=== PATIENT | female | born 1950 | race Caucasian/White ===

== ENCOUNTER 2017-12-19 13:16 | Inpatient (IN) | payer MEDICARE, OTHER ==
[2017-12-19] MEDS: HYDROCODONE/APAP (5/325) TAB PO (13:36)
[2017-12-19] MEDS: KETOROLAC 30 MG INJ IM (13:36)
[2017-12-19] MEDS: SOD CHLORIDE 0.9% 1,000 ML IV ×2 (17:37→20:00)
[2017-12-19] MEDS: morphine 2 MG INJ IV ×3 (17:37→22:09)
[2017-12-19 17:38] LABS: ADD MAN DIFF? NO
[2017-12-19 17:43] LABS: WHITE BLOOD COUNT 10.4 10^3/ul (4.8-10.8)
[2017-12-19 17:43] LABS: BASOPHIL # 0.1 10^3/ul (0.0-0.1); BASOPHILS % 0.5 % (0.0-2.0); EOSINOPHILS % 0.3 % (0.0-7.0); HEMATOCRIT 37.3 % (37.0-47.0); HEMOGLOBIN 12.7 g/dl (12.0-16.0); LYMPHOCYTES # 1.4 10^3/ul (0.8-2.9); LYMPHOCYTES % 13.7 % (15.0-51.0); MEAN CORPUSCULAR HEMOGLOBIN 27.7 pg (29.0-33.0); MEAN CORPUSCULAR VOLUME 81.3 fl (82.0-101.0); MEAN PLATELET VOLUME 10.5 fl (7.4-10.4); MONOCYTE # 0.5 10^3/ul (0.3-0.9); MONOCYTES % 4.9 % (0.0-11.0); NEUTROPHIL # 8.3 10^3/ul (1.6-7.5); NEUTROPHILS % 80.1 % (39.0-77.0); PLATELET COUNT 248 10^3/UL (140-415); RED BLOOD COUNT 4.59 10^6/ul (4.20-5.40); RED CELL DISTRIBUTION WIDTH 12.2 % (11.5-14.5)
[2017-12-19 17:59] LABS: INR 0.93; PROTIME 12.6 Sec (11.9-14.9)
[2017-12-19 18:00] LABS: PARTIAL THROMBOPLASTIN TIME 23.9 Sec (25.0-35.0)
[2017-12-19 18:10] LABS: ANION GAP 15 (8-16); BLOOD UREA NITROGEN 9 mg/dl (7-20); CALCIUM 9.2 mg/dl (8.4-10.2); CARBON DIOXIDE 25 mmol/L (21-31); CHLORIDE 100 mmol/L (97-110); CREATININE 0.57 mg/dl (0.44-1.00); GLUCOSE 351 mg/dl (70-220); POTASSIUM 3.9 mmol/L (3.5-5.1); SODIUM 136 mmol/L (135-144)
[2017-12-19] MEDS ORDERED: ACETAMINOPHEN 325 MG TAB PO (19:00)
[2017-12-19] MEDS ORDERED: ONDANSETRON 4 MG INJ IV ×2 (19:00→20:00)
[2017-12-19] MEDS ORDERED: NITROGLYCERIN (SL) 0.4 MG TAB SL (20:00)
[2017-12-19] MEDS ORDERED: hydrALAzine 20 MG INJ IV (20:00)
[2017-12-19] MEDS: Discontinue current oral sulfonylureas (glyburide, glipizide, and/or glimepiride) prior to XX (20:00)
[2017-12-19] MEDS ORDERED: NACL 0.9% 3 ML SYG IV (20:00)
[2017-12-19] MEDS: HYPOGLYCEMIA PROTOCOL when Glucose is <70 mg/dL or symptomatic <90 mg/dL. XX (20:00)
[2017-12-19] MEDS ORDERED: ALBUTEROL/IPRATROPIUM (NEB) 3 ML AMP HHN (20:00)
[2017-12-19] MEDS ORDERED: LORAZEPAM 2 MG INJ IV (20:00)
[2017-12-19] MEDS ORDERED: GLUCOSE GEL 15 GRAM TUBE BUCCAL (21:00)
[2017-12-19] MEDS: HEPARIN 5,000 UNIT/0.5 ML VIAL SC (21:00)
[2017-12-19] MEDS ORDERED: GLUCAGON 1 MG INJ IM (21:00)
[2017-12-19] MEDS: INSULIN ASPART [NOVOLOG] 3 ML PEN SC (21:00)
[2017-12-19] MEDS ORDERED: DEXTROSE 50% 50 ML SYRINGE IV ×2 (21:00)
[2017-12-19] MEDS ORDERED: GLUCOSE GEL 15 GRAM TUBE PO ×2 (21:00)
[2017-12-19 21:17] LABS: FREE T4 (FREE THYROXINE) 1.26 ng/dl (0.78-2.44)
[2017-12-19] MEDS: SOD CHLORIDE 0.45% 1,000 ML IV (23:28)
[2017-12-20] MEDS: ACCU-CHEK XX (01:58)
[2017-12-20] MEDS: morphine 2 MG INJ IV (02:14)
[2017-12-20 05:19] LABS: ADD MAN DIFF? NO
[2017-12-20 05:24] LABS: WHITE BLOOD COUNT 7.7 10^3/ul (4.8-10.8)
[2017-12-20 05:24] LABS: BASOPHILS % 0.4 % (0.0-2.0); EOSINOPHILS # 0.1 10^3/ul (0.0-0.5); EOSINOPHILS % 0.8 % (0.0-7.0); HEMATOCRIT 32.8 % (37.0-47.0); LYMPHOCYTES # 1.4 10^3/ul (0.8-2.9); LYMPHOCYTES % 18.4 % (15.0-51.0); MEAN CORPUSCULAR HEMOGLOBIN 27.8 pg (29.0-33.0); MEAN CORPUSCULAR HGB CONC 33.5 g/dl (32.0-37.0); MEAN CORPUSCULAR VOLUME 82.8 fl (82.0-101.0); MEAN PLATELET VOLUME 10.9 fl (7.4-10.4); MONOCYTE # 0.6 10^3/ul (0.3-0.9); MONOCYTES % 7.8 % (0.0-11.0); NEUTROPHIL # 5.6 10^3/ul (1.6-7.5); NEUTROPHILS % 72.3 % (39.0-77.0); PLATELET COUNT 203 10^3/UL (140-415); RED BLOOD COUNT 3.96 10^6/ul (4.20-5.40); RED CELL DISTRIBUTION WIDTH 12.3 % (11.5-14.5)
[2017-12-20 05:39] LABS: HEMOGLOBIN A1C 10.6 % (0-5.9)
[2017-12-20 05:46] LABS: ANION GAP 12 (8-16); BLOOD UREA NITROGEN 11 mg/dl (7-20); CALCIUM 8.9 mg/dl (8.4-10.2); CARBON DIOXIDE 27 mmol/L (21-31); CHLORIDE 101 mmol/L (97-110); CREATININE 0.68 mg/dl (0.44-1.00); GLUCOSE 310 mg/dl (70-220); MAGNESIUM 1.7 mg/dl (1.7-2.5); PHOSPHORUS 3.6 mg/dl (2.5-4.9); POTASSIUM 4.1 mmol/L (3.5-5.1); SODIUM 136 mmol/L (135-144)
[2017-12-20 05:47] LABS: CHOLESTEROL 262 mg/dl (100-200)
[2017-12-20 05:47] LABS: CHOL/HDL RATIO 4.5 RATIO; HDL CHOLESTEROL 58 mg/dl (35-98); LDL CHOLESTEROL,CALCULATED 178 mg/dl; TRIGLYCERIDES 132 mg/dl (0-149)
[2017-12-20 06:14] LABS: THYROID STIMULATING HORMONE 0.674 MIU/L (0.465-4.680)
[2017-12-20] MEDS: PANTOPRAZOLE (EC) 40 MG TAB PO (07:06)
[2017-12-20] MEDS: SOD CHLORIDE 0.45% 1,000 ML IV ×2 (09:05→11:57)
[2017-12-20] MEDS: HEPARIN 5,000 UNIT/0.5 ML VIAL SC ×2 (09:16→20:44)
[2017-12-20] MEDS: INSULIN ASPART [NOVOLOG] 3 ML PEN SC ×6 (09:16→20:43)
[2017-12-20] MEDS: HYDROCODONE/APAP (5/325) TAB PO ×2 (11:58→20:51)
[2017-12-20] MEDS: INSULIN GLARGINE [LANtus] 3 ML PEN SC (13:42)
[2017-12-20] MEDS: AMLODIPINE 5 MG TAB PO (17:36)
[2017-12-21] MEDS: SOD CHLORIDE 0.45% 1,000 ML IV ×3 (00:28→23:21)
[2017-12-21] MEDS: ACCU-CHEK XX (01:57)
[2017-12-21 05:13] LABS: ADD MAN DIFF? NO
[2017-12-21] MEDS: PANTOPRAZOLE (EC) 40 MG TAB PO (05:15)
[2017-12-21 05:19] LABS: BASOPHILS % 0.6 % (0.0-2.0); EOSINOPHILS # 0.1 10^3/ul (0.0-0.5); HEMATOCRIT 32.2 % (37.0-47.0); HEMOGLOBIN 10.9 g/dl (12.0-16.0); LYMPHOCYTES # 2.2 10^3/ul (0.8-2.9); MEAN CORPUSCULAR HEMOGLOBIN 28.1 pg (29.0-33.0); MEAN CORPUSCULAR HGB CONC 33.9 g/dl (32.0-37.0); MEAN PLATELET VOLUME 10.7 fl (7.4-10.4); MONOCYTE # 0.7 10^3/ul (0.3-0.9); MONOCYTES % 9.2 % (0.0-11.0); NEUTROPHILS % 56.9 % (39.0-77.0); PLATELET COUNT 181 10^3/UL (140-415); RED BLOOD COUNT 3.88 10^6/ul (4.20-5.40); RED CELL DISTRIBUTION WIDTH 12.2 % (11.5-14.5)
[2017-12-21 05:19] LABS: WHITE BLOOD COUNT 7.1 10^3/ul (4.8-10.8)
[2017-12-21] MEDS: morphine 2 MG INJ IV ×2 (05:23→20:25)
[2017-12-21 06:12] LABS: ANION GAP 10 (8-16); BLOOD UREA NITROGEN 9 mg/dl (7-20); CALCIUM 8.6 mg/dl (8.4-10.2); CARBON DIOXIDE 26 mmol/L (21-31); CHLORIDE 101 mmol/L (97-110); CREATININE 0.62 mg/dl (0.44-1.00); GLUCOSE 230 mg/dl (70-220); POTASSIUM 3.8 mmol/L (3.5-5.1); SODIUM 133 mmol/L (135-144)
[2017-12-21] MEDS: AMLODIPINE 5 MG TAB PO (08:46)
[2017-12-21] MEDS: HEPARIN 5,000 UNIT/0.5 ML VIAL SC (09:07)
[2017-12-21] MEDS: INSULIN GLARGINE [LANtus] 3 ML PEN SC (09:08)
[2017-12-21] MEDS: INSULIN ASPART [NOVOLOG] 3 ML PEN SC ×7 (09:20→20:40)
[2017-12-21] MEDS: HYDROCODONE/APAP (5/325) TAB PO (11:35)
[2017-12-22] MEDS: ACCU-CHEK XX (02:00)
[2017-12-22] MEDS: PANTOPRAZOLE (EC) 40 MG TAB PO (05:02)
[2017-12-22 05:11] LABS: ADD MAN DIFF? NO
[2017-12-22 05:17] LABS: WHITE BLOOD COUNT 6.8 10^3/ul (4.8-10.8)
[2017-12-22 05:17] LABS: BASOPHILS % 0.6 % (0.0-2.0); EOSINOPHILS # 0.1 10^3/ul (0.0-0.5); EOSINOPHILS % 1.8 % (0.0-7.0); HEMATOCRIT 30.8 % (37.0-47.0); HEMOGLOBIN 10.7 g/dl (12.0-16.0); LYMPHOCYTES # 1.7 10^3/ul (0.8-2.9); LYMPHOCYTES % 25.8 % (15.0-51.0); MEAN CORPUSCULAR HEMOGLOBIN 28.6 pg (29.0-33.0); MEAN CORPUSCULAR HGB CONC 34.7 g/dl (32.0-37.0); MEAN CORPUSCULAR VOLUME 82.4 fl (82.0-101.0); MEAN PLATELET VOLUME 10.7 fl (7.4-10.4); MONOCYTE # 0.6 10^3/ul (0.3-0.9); MONOCYTES % 8.9 % (0.0-11.0); NEUTROPHIL # 4.2 10^3/ul (1.6-7.5); NEUTROPHILS % 62.6 % (39.0-77.0); PLATELET COUNT 177 10^3/UL (140-415); RED BLOOD COUNT 3.74 10^6/ul (4.20-5.40); RED CELL DISTRIBUTION WIDTH 12.2 % (11.5-14.5)
[2017-12-22 05:38] LABS: ANION GAP 11 (8-16); BLOOD UREA NITROGEN 10 mg/dl (7-20); CALCIUM 8.9 mg/dl (8.4-10.2); CARBON DIOXIDE 27 mmol/L (21-31); CHLORIDE 99 mmol/L (97-110); CREATININE 0.68 mg/dl (0.44-1.00); GLUCOSE 160 mg/dl (70-220); POTASSIUM 3.9 mmol/L (3.5-5.1); SODIUM 133 mmol/L (135-144)
[2017-12-22] MEDS: INSULIN ASPART [NOVOLOG] 3 ML PEN SC ×7 (07:50→20:36)
[2017-12-22] MEDS: INSULIN GLARGINE [LANtus] 3 ML PEN SC (08:00)
[2017-12-22] MEDS: AMLODIPINE 5 MG TAB PO (08:34)
[2017-12-22] MEDS ORDERED: CEFAZOLIN 1 GM INJ (09:45)
[2017-12-22] MEDS ORDERED: MIDAZOLAM 1 MG/ML 2 ML INJ (09:45)
[2017-12-22] MEDS ORDERED: PROPOFOL 20 ML (09:45)
[2017-12-22] MEDS ORDERED: ONDANSETRON 4 MG INJ (09:45)
[2017-12-22] MEDS ORDERED: NEOSTIGMINE 3 MG/3 ML SYRINGE (09:45)
[2017-12-22] MEDS ORDERED: DEXAMETHASONE 4 MG/ML 1 ML INJ (09:45)
[2017-12-22] MEDS ORDERED: ROCURONIUM 50 MG INJ (09:45)
[2017-12-22] MEDS ORDERED: FENTAnyl 50 MCG/ML VIAL (09:45)
[2017-12-22] MEDS ORDERED: GLYCOPYRROLATE 0.4 MG INJ (09:45)
[2017-12-22] MEDS ORDERED: morphine SULFATE/PF (10 MG/10 ML) INJ (10:21)
[2017-12-22] MEDS: POLYMYXIN/BACITRACIN 1L IRRIG IRR (10:27)
[2017-12-22] MEDS ORDERED: NALOXONE (0.4 MG/ML) INJ IV (11:30)
[2017-12-22] MEDS ORDERED: LABETALOL HCL 20MG INJ IV (11:30)
[2017-12-22] MEDS ORDERED: HYDROmorphONE (0.2 MG/ML) 10ML SYG IV ×2 (11:30)
[2017-12-22] MEDS ORDERED: ONDANSETRON 4 MG INJ IV (11:30)
[2017-12-22] MEDS ORDERED: DIPHENHYDRAMINE 50 MG INJ IV ×2 (11:30)
[2017-12-22] MEDS ORDERED: OXYCODONE/ACETAMINOPHEN (5/325) TAB PO ×2 (11:30)
[2017-12-22] MEDS ORDERED: IPRATROPIUM (NEB) 0.5 MG/2.5 ML AMP HHN (11:30)
[2017-12-22] MEDS ORDERED: ALBUTEROL 0.083% (NEB) 2.5 MG/3 ML AMP HHN (11:30)
[2017-12-22] MEDS ORDERED: HYDROmorphONE 0.5 MG/0.5 ML SYG IV (11:30)
[2017-12-22] MEDS ORDERED: TRIMETHOBENZAMIDE 100 MG/ML VIAL IM (11:30)
[2017-12-22] MEDS ORDERED: MIDAZOLAM 1 MG/ML 2 ML INJ IV (11:30)
[2017-12-22] MEDS ORDERED: FENTAnyl 50 MCG/ML VIAL IV ×3 (11:30)
[2017-12-22] MEDS ORDERED: NALBUPHINE HCL (10 MG/1 ML) INJ IV (11:30)
[2017-12-22] MEDS ORDERED: SUGAMMADEX SODIUM 200 MG/2 ML VIAL IV (13:58)
[2017-12-22] MEDS: EPHEDrine SULFATE 50 MG/5 ML SYG IV (14:19)
[2017-12-22] MEDS: ONDANSETRON 4 MG INJ IV (14:24)
[2017-12-22] MEDS: HYDROmorphONE (0.2 MG/ML) 10ML SYG IV ×2 (14:28→14:39)
[2017-12-22] MEDS ORDERED: D5W-0.45 NACL + KCL 20 MEQ 1,000 ML IV (14:31)
[2017-12-22] MEDS: MEPERIDINE 25 MG INJ IV (14:37)
[2017-12-22] MEDS: hydrALAzine 20 MG INJ IV (14:46)
[2017-12-22] MEDS ORDERED: NACL 0.9% 3 ML SYG IV (15:00)
[2017-12-22] MEDS ORDERED: morphine 4 MG/ML VIAL IV (15:00)
[2017-12-22 15:22] LABS: ADD MAN DIFF? NO
[2017-12-22 15:26] LABS: WHITE BLOOD COUNT 9.1 10^3/ul (4.8-10.8)
[2017-12-22 15:26] LABS: BASOPHILS % 0.4 % (0.0-2.0); EOSINOPHILS % 0.3 % (0.0-7.0); HEMATOCRIT 31.6 % (37.0-47.0); HEMOGLOBIN 10.9 g/dl (12.0-16.0); LYMPHOCYTES # 1.1 10^3/ul (0.8-2.9); LYMPHOCYTES % 11.6 % (15.0-51.0); MEAN CORPUSCULAR HEMOGLOBIN 28.4 pg (29.0-33.0); MEAN CORPUSCULAR HGB CONC 34.5 g/dl (32.0-37.0); MEAN CORPUSCULAR VOLUME 82.3 fl (82.0-101.0); MEAN PLATELET VOLUME 10.6 fl (7.4-10.4); MONOCYTE # 0.4 10^3/ul (0.3-0.9); MONOCYTES % 4.2 % (0.0-11.0); NEUTROPHIL # 7.6 10^3/ul (1.6-7.5); NEUTROPHILS % 82.7 % (39.0-77.0); PLATELET COUNT 162 10^3/UL (140-415); RED BLOOD COUNT 3.84 10^6/ul (4.20-5.40); RED CELL DISTRIBUTION WIDTH 12.5 % (11.5-14.5)
[2017-12-22] MEDS: CEFAZOLIN 1 GM/50 ML (PMX) 50 ML IVPB ×2 (15:52→23:01)
[2017-12-22] MEDS: SOD CHLORIDE 0.9% 1,000 ML IV (15:52)
[2017-12-23] MEDS: SOD CHLORIDE 0.9% 1,000 ML IV ×3 (01:51→21:30)
[2017-12-23] MEDS: ACCU-CHEK XX (01:51)
[2017-12-23 05:29] LABS: ADD MAN DIFF? NO
[2017-12-23 05:38] LABS: WHITE BLOOD COUNT 9.5 10^3/ul (4.8-10.8)
[2017-12-23 05:38] LABS: BASOPHILS % 0.1 % (0.0-2.0); HEMATOCRIT 29.7 % (37.0-47.0); HEMOGLOBIN 10.1 g/dl (12.0-16.0); LYMPHOCYTES # 0.7 10^3/ul (0.8-2.9); LYMPHOCYTES % 7.8 % (15.0-51.0); MEAN CORPUSCULAR HEMOGLOBIN 28.4 pg (29.0-33.0); MEAN CORPUSCULAR VOLUME 83.4 fl (82.0-101.0); MEAN PLATELET VOLUME 10.8 fl (7.4-10.4); MONOCYTES % 10.8 % (0.0-11.0); NEUTROPHIL # 7.7 10^3/ul (1.6-7.5); NEUTROPHILS % 80.9 % (39.0-77.0); PLATELET COUNT 181 10^3/UL (140-415); RED BLOOD COUNT 3.56 10^6/ul (4.20-5.40); RED CELL DISTRIBUTION WIDTH 12.3 % (11.5-14.5)
[2017-12-23] MEDS: PANTOPRAZOLE (EC) 40 MG TAB PO (05:39)
[2017-12-23] MEDS: HYDROmorphONE 0.5 MG/0.5 ML SYG IV ×3 (05:39→10:36)
[2017-12-23 05:55] LABS: ANION GAP 11 (8-16); BLOOD UREA NITROGEN 11 mg/dl (7-20); CALCIUM 8.8 mg/dl (8.4-10.2); CARBON DIOXIDE 26 mmol/L (21-31); CHLORIDE 100 mmol/L (97-110); CREATININE 0.62 mg/dl (0.44-1.00); GLUCOSE 285 mg/dl (70-220); POTASSIUM 4.2 mmol/L (3.5-5.1); SODIUM 133 mmol/L (135-144)
[2017-12-23 05:59] LABS: IRON 15 ug/dl (35-150)
[2017-12-23] MEDS: CEFAZOLIN 1 GM/50 ML (PMX) 50 ML IVPB (06:07)
[2017-12-23 06:08] LABS: % IRON SATURATION 6 % SAT (22-52); TOTAL IRON BINDING CAPACITY 247 ug/dl (241-421)
[2017-12-23] MEDS: AMLODIPINE 5 MG TAB PO ×2 (08:12→13:15)
[2017-12-23] MEDS: INSULIN ASPART [NOVOLOG] 3 ML PEN SC ×7 (09:11→21:04)
[2017-12-23] MEDS: INSULIN GLARGINE [LANtus] 3 ML PEN SC (09:12)
[2017-12-23] MEDS: morphine 2 MG INJ IV (12:06)
[2017-12-23] MEDS: ENOXAPARIN 40 MG/0.4 ML SYG SC (12:08)
[2017-12-23] MEDS: LINAGLIPTIN 5 MG TABLET PO (13:24)
[2017-12-23] MEDS: KETOROLAC 30 MG INJ IV (13:33)
[2017-12-24] MEDS: SOD CHLORIDE 0.9% 1,000 ML IV (01:40)
[2017-12-24] MEDS: ACCU-CHEK XX (01:40)
[2017-12-24 04:58] LABS: ADD MAN DIFF? NO
[2017-12-24 05:02] LABS: WHITE BLOOD COUNT 8.6 10^3/ul (4.8-10.8)
[2017-12-24 05:02] LABS: BASOPHILS % 0.3 % (0.0-2.0); EOSINOPHILS % 0.2 % (0.0-7.0); HEMATOCRIT 27.5 % (37.0-47.0); HEMOGLOBIN 9.3 g/dl (12.0-16.0); LYMPHOCYTES # 1.2 10^3/ul (0.8-2.9); MEAN CORPUSCULAR HEMOGLOBIN 28.2 pg (29.0-33.0); MEAN CORPUSCULAR HGB CONC 33.8 g/dl (32.0-37.0); MEAN CORPUSCULAR VOLUME 83.3 fl (82.0-101.0); MEAN PLATELET VOLUME 10.8 fl (7.4-10.4); MONOCYTE # 0.9 10^3/ul (0.3-0.9); MONOCYTES % 10.4 % (0.0-11.0); NEUTROPHIL # 6.4 10^3/ul (1.6-7.5); NEUTROPHILS % 74.5 % (39.0-77.0); PLATELET COUNT 179 10^3/UL (140-415); RED CELL DISTRIBUTION WIDTH 12.6 % (11.5-14.5)
[2017-12-24] MEDS: PANTOPRAZOLE (EC) 40 MG TAB PO (05:06)
[2017-12-24] MEDS: KETOROLAC 30 MG INJ IV (05:07)
[2017-12-24 05:32] LABS: ANION GAP 12 (8-16); BLOOD UREA NITROGEN 11 mg/dl (7-20); CALCIUM 8.7 mg/dl (8.4-10.2); CARBON DIOXIDE 25 mmol/L (21-31); CHLORIDE 100 mmol/L (97-110); CREATININE 0.64 mg/dl (0.44-1.00); GLUCOSE 247 mg/dl (70-220); SODIUM 133 mmol/L (135-144)
[2017-12-24] MEDS: AMLODIPINE 10 MG TAB PO (09:06)
[2017-12-24] MEDS: DOCUSATE SODIUM 100 MG CAP PO (09:06)
[2017-12-24] MEDS: LINAGLIPTIN 5 MG TABLET PO (09:06)
[2017-12-24] MEDS: HYDROCODONE/APAP (5/325) TAB PO ×2 (09:07→22:54)
[2017-12-24] MEDS: INSULIN ASPART [NOVOLOG] 3 ML PEN SC ×7 (09:17→21:00)
[2017-12-24] MEDS: INSULIN GLARGINE [LANtus] 3 ML PEN SC ×2 (09:18→13:39)
[2017-12-24] MEDS: ENOXAPARIN 40 MG/0.4 ML SYG SC (12:31)
[2017-12-24] MEDS: LOSARTAN 50 MG TAB PO (13:28)
[2017-12-24] MEDS: MAGNESIUM HYDROXIDE 30ML CUP PO (18:13)
[2017-12-24] MEDS: ACETAMINOPHEN 325 MG TAB PO (22:48)
[2017-12-25] MEDS: ACCU-CHEK XX (02:00)
[2017-12-25 05:02] LABS: ADD MAN DIFF? NO
[2017-12-25 05:07] LABS: WHITE BLOOD COUNT 8.4 10^3/ul (4.8-10.8)
[2017-12-25 05:07] LABS: BASOPHILS % 0.4 % (0.0-2.0); EOSINOPHILS # 0.1 10^3/ul (0.0-0.5); EOSINOPHILS % 1.1 % (0.0-7.0); HEMATOCRIT 28.2 % (37.0-47.0); HEMOGLOBIN 9.5 g/dl (12.0-16.0); LYMPHOCYTES # 1.7 10^3/ul (0.8-2.9); LYMPHOCYTES % 19.9 % (15.0-51.0); MEAN CORPUSCULAR HEMOGLOBIN 27.9 pg (29.0-33.0); MEAN CORPUSCULAR HGB CONC 33.7 g/dl (32.0-37.0); MEAN CORPUSCULAR VOLUME 82.9 fl (82.0-101.0); MEAN PLATELET VOLUME 10.7 fl (7.4-10.4); MONOCYTE # 0.9 10^3/ul (0.3-0.9); MONOCYTES % 10.5 % (0.0-11.0); NEUTROPHIL # 5.7 10^3/ul (1.6-7.5); NEUTROPHILS % 67.6 % (39.0-77.0); PLATELET COUNT 228 10^3/UL (140-415); RED CELL DISTRIBUTION WIDTH 12.5 % (11.5-14.5)
[2017-12-25 05:49] LABS: ANION GAP 11 (8-16); BLOOD UREA NITROGEN 9 mg/dl (7-20); CALCIUM 8.5 mg/dl (8.4-10.2); CARBON DIOXIDE 26 mmol/L (21-31); CHLORIDE 101 mmol/L (97-110); CREATININE 0.61 mg/dl (0.44-1.00); GLUCOSE 118 mg/dl (70-220); POTASSIUM 3.7 mmol/L (3.5-5.1); SODIUM 134 mmol/L (135-144)
[2017-12-25] MEDS: PANTOPRAZOLE (EC) 40 MG TAB PO (06:08)
[2017-12-25] MEDS: NA PHOSPHATE/BIPHOS 133 ML ENEMA PR (06:11)
[2017-12-25 08:28] LABS: ADD UMIC YES; UR AMORPHOUS CRYSTAL FEW /HPF (NONE SEEN); UR ASCORBIC ACID NEGATIVE (NEGATIVE); UR BACTERIA FEW /HPF (NONE SEEN); UR BILIRUBIN (Dip) NEGATIVE (NEGATIVE); UR BLOOD (Dip) 1+ mg/dL (NEGATIVE); UR BUDDING YEAST MODERATE /HPF (NONE SEEN); UR CLARITY CLEAR (CLEAR); UR COLOR YELLOW (YELLOW); UR GLUCOSE (Dip) NEGATIVE (NEGATIVE); UR KETONES (Dip) NEGATIVE (NEGATIVE); UR LEUKOCYTE ESTERASE (Dip) TRACE Leu/ul (NEGATIVE); UR NITRITE (Dip) NEGATIVE (NEGATIVE); UR RBC 1 /HPF (0-5); UR SPECIFIC GRAVITY (Dip) 1.015 (1.003-1.030); UR SQUAMOUS EPITHELIAL CELL FEW /HPF (FEW); UR TOTAL PROTEIN (Dip) NEGATIVE (NEGATIVE); UR UROBILINOGEN (Dip) 2+ mg/dL (NEGATIVE); UR WBC 19 /HPF (0-5)
[2017-12-25] MEDS: LOSARTAN 50 MG TAB PO ×2 (08:57→21:31)
[2017-12-25] MEDS: AMLODIPINE 10 MG TAB PO (08:58)
[2017-12-25] MEDS: LINAGLIPTIN 5 MG TABLET PO (08:58)
[2017-12-25] MEDS: ENOXAPARIN 40 MG/0.4 ML SYG SC (09:07)
[2017-12-25] MEDS: INSULIN ASPART [NOVOLOG] 3 ML PEN SC ×5 (09:20→21:00)
[2017-12-25] MEDS: INSULIN GLARGINE [LANtus] 3 ML PEN SC (09:26)
[2017-12-25] MEDS: HYDROCODONE/APAP (5/325) TAB PO ×2 (09:30→12:40)
[2017-12-25] MEDS: METOPROLOL (XL) 50 MG TAB PO (10:32)
[2017-12-25] MEDS: metFORMIN 500 MG TAB PO ×2 (10:32→17:45)
[2017-12-25] MEDS: KETOROLAC 30 MG INJ IV (10:33)
[2017-12-25] MEDS: CHLORTHALIDONE 25 MG TAB PO (10:40)
[2017-12-25] MEDS: SOD FERRIC GLUC COMPLX 125 MG in SOD CHLORIDE 0.9% 100 ML IVPB (10:40)
[2017-12-25] MEDS: REPAGLINIDE 1 MG TAB PO ×2 (12:40→17:25)
[2017-12-25] MEDS: ATORVASTATIN 40 MG TAB PO (21:30)
[2017-12-26] MEDS: ACCU-CHEK XX (02:00)
[2017-12-26] MEDS: PANTOPRAZOLE (EC) 40 MG TAB PO (05:06)
[2017-12-26] MEDS: HYDROCODONE/APAP (5/325) TAB PO ×2 (05:09→08:48)
[2017-12-26 05:12] LABS: ADD MAN DIFF? NO
[2017-12-26 05:23] LABS: WHITE BLOOD COUNT 7.9 10^3/ul (4.8-10.8)
[2017-12-26 05:23] LABS: BASOPHILS % 0.5 % (0.0-2.0); EOSINOPHILS # 0.1 10^3/ul (0.0-0.5); EOSINOPHILS % 1.7 % (0.0-7.0); HEMATOCRIT 27.5 % (37.0-47.0); HEMOGLOBIN 9.5 g/dl (12.0-16.0); LYMPHOCYTES # 1.2 10^3/ul (0.8-2.9); LYMPHOCYTES % 15.2 % (15.0-51.0); MEAN CORPUSCULAR HEMOGLOBIN 28.4 pg (29.0-33.0); MEAN CORPUSCULAR HGB CONC 34.5 g/dl (32.0-37.0); MEAN CORPUSCULAR VOLUME 82.3 fl (82.0-101.0); MEAN PLATELET VOLUME 10.2 fl (7.4-10.4); MONOCYTE # 0.9 10^3/ul (0.3-0.9); MONOCYTES % 11.6 % (0.0-11.0); NEUTROPHIL # 5.5 10^3/ul (1.6-7.5); NEUTROPHILS % 70.2 % (39.0-77.0); PLATELET COUNT 304 10^3/UL (140-415); RED BLOOD COUNT 3.34 10^6/ul (4.20-5.40); RED CELL DISTRIBUTION WIDTH 12.6 % (11.5-14.5)
[2017-12-26 06:08] LABS: ANION GAP 14 (8-16); BLOOD UREA NITROGEN 9 mg/dl (7-20); CALCIUM 8.7 mg/dl (8.4-10.2); CARBON DIOXIDE 27 mmol/L (21-31); CHLORIDE 96 mmol/L (97-110); CREATININE 0.68 mg/dl (0.44-1.00); GLUCOSE 109 mg/dl (70-220); POTASSIUM 3.5 mmol/L (3.5-5.1); SODIUM 133 mmol/L (135-144)
[2017-12-26] MEDS: REPAGLINIDE 1 MG TAB PO ×4 (07:20→18:42)
[2017-12-26] MEDS: INSULIN ASPART [NOVOLOG] 3 ML PEN SC (07:50)
[2017-12-26] MEDS: metFORMIN 500 MG TAB PO ×3 (07:50→18:42)
[2017-12-26] MEDS: LINAGLIPTIN 5 MG TABLET PO ×2 (08:48→09:00)
[2017-12-26] MEDS: CHLORTHALIDONE 25 MG TAB PO ×2 (08:49→09:00)
[2017-12-26] MEDS: METOPROLOL (XL) 50 MG TAB PO ×2 (08:49→21:08)
[2017-12-26] MEDS: LOSARTAN 50 MG TAB PO ×2 (08:49→21:09)
[2017-12-26] MEDS: INSULIN GLARGINE [LANtus] 3 ML PEN SC (08:50)
[2017-12-26] MEDS: ENOXAPARIN 40 MG/0.4 ML SYG SC (08:52)
[2017-12-26] MEDS ORDERED: VANCOMYCIN IV PER PHARMACY XX (09:30)
[2017-12-26] MEDS: SOD FERRIC GLUC COMPLX 125 MG in SOD CHLORIDE 0.9% 100 ML IVPB (10:58)
[2017-12-26] MEDS: morphine 4 MG/ML VIAL IV ×2 (10:58→23:00)
[2017-12-26] MEDS: VANCOMYCIN 1.5 GM in DEXTROSE 5% 500 ML IVPB (12:20)
[2017-12-26] MEDS: ATORVASTATIN 40 MG TAB PO (21:08)
[2017-12-26] MEDS: AL HYDROX/MG HYDROX/SIMETH 30 ML CUP PO (23:06)
[2017-12-27] MEDS: ACCU-CHEK XX (02:00)
[2017-12-27] MEDS: morphine 4 MG/ML VIAL IV ×2 (03:03→10:40)
[2017-12-27 05:09] LABS: ADD MAN DIFF? NO
[2017-12-27 05:23] LABS: WHITE BLOOD COUNT 7.2 10^3/ul (4.8-10.8)
[2017-12-27 05:23] LABS: BASOPHIL # 0.1 10^3/ul (0.0-0.1); BASOPHILS % 0.8 % (0.0-2.0); EOSINOPHILS # 0.3 10^3/ul (0.0-0.5); EOSINOPHILS % 4.2 % (0.0-7.0); HEMATOCRIT 28.5 % (37.0-47.0); HEMOGLOBIN 9.7 g/dl (12.0-16.0); LYMPHOCYTES # 1.3 10^3/ul (0.8-2.9); MEAN CORPUSCULAR HEMOGLOBIN 28.3 pg (29.0-33.0); MEAN CORPUSCULAR VOLUME 83.1 fl (82.0-101.0); MEAN PLATELET VOLUME 9.7 fl (7.4-10.4); MONOCYTES % 13.2 % (0.0-11.0); NEUTROPHIL # 4.5 10^3/ul (1.6-7.5); NEUTROPHILS % 62.4 % (39.0-77.0); PLATELET COUNT 360 10^3/UL (140-415); RED BLOOD COUNT 3.43 10^6/ul (4.20-5.40); RED CELL DISTRIBUTION WIDTH 12.7 % (11.5-14.5)
[2017-12-27 05:41] LABS: ANION GAP 13 (8-16); BLOOD UREA NITROGEN 8 mg/dl (7-20); CALCIUM 8.8 mg/dl (8.4-10.2); CARBON DIOXIDE 29 mmol/L (21-31); CHLORIDE 95 mmol/L (97-110); CREATININE 0.61 mg/dl (0.44-1.00); GLUCOSE 134 mg/dl (70-220); POTASSIUM 3.5 mmol/L (3.5-5.1); SODIUM 133 mmol/L (135-144)
[2017-12-27] MEDS: PANTOPRAZOLE (EC) 40 MG TAB PO (05:52)
[2017-12-27] MEDS: INSULIN GLARGINE [LANtus] 3 ML PEN SC (08:00)
[2017-12-27] MEDS: REPAGLINIDE 1 MG TAB PO ×3 (08:51→18:29)
[2017-12-27] MEDS: HYDROCODONE/APAP (5/325) TAB PO (08:51)
[2017-12-27] MEDS: CHLORTHALIDONE 25 MG TAB PO (08:52)
[2017-12-27] MEDS: LINAGLIPTIN 5 MG TABLET PO (08:52)
[2017-12-27] MEDS: METOPROLOL (XL) 50 MG TAB PO ×2 (08:53→20:29)
[2017-12-27] MEDS: LOSARTAN 50 MG TAB PO ×2 (08:53→20:29)
[2017-12-27] MEDS: metFORMIN 500 MG TAB PO ×2 (08:59→18:29)
[2017-12-27] MEDS: ENOXAPARIN 40 MG/0.4 ML SYG SC (08:59)
[2017-12-27] MEDS: SOD FERRIC GLUC COMPLX 125 MG in SOD CHLORIDE 0.9% 100 ML IVPB (10:40)
[2017-12-27] MEDS ORDERED: OXYCODONE/ACETAMINOPHEN (5/325) TAB PO (11:30)
[2017-12-27] MEDS ORDERED: OXYCODONE/ACETAMINOPHEN (10/325) TAB PO (11:30)
[2017-12-27] MEDS: VANCOMYCIN 1 GM 250 ML IVPB (12:02)
[2017-12-27] MEDS: NITROFURANTOIN (SR) 100 MG CAP PO ×2 (14:07→20:28)
[2017-12-27] MEDS: ATORVASTATIN 40 MG TAB PO (20:28)
== END 2017-12-27 20:45 | DRG 493 ==
LOC: FTE 13:16 → MS1 18:50
PROC: 0QSH04Z Reposition Left Tibia with Internal Fixation Device, Open Approach (ICD-10-PCS; principal; 2017-12-22 10:00)
DX: S82.142A Displaced bicondylar fracture of left tibia, initial encounter for closed fracture (principal); N39.0 Urinary tract infection, site not specified; I11.9 Hypertensive heart disease without heart failure; E11.9 Type 2 diabetes mellitus without complications; B95.8 Unspecified staphylococcus as the cause of diseases classified elsewhere; D50.9 Iron deficiency anemia, unspecified; E78.5 Hyperlipidemia, unspecified; R50.82 Postprocedural fever; W50.0XXA Accidental hit or strike by another person, initial encounter; E66.9 Obesity, unspecified; Z68.30 Body mass index [BMI] 30.0-30.9, adult; Z91.14 Patient's other noncompliance with medication regimen
CPT/HCPCS: 36415; 71045; 73030-RT; 73560; 73562; 73590; 73700; 80048; 80061; 81001; 82728; 82962; 83036; 83540; 83735; 84100; 84439; 84443; 85025; 85610; 85730; 86850; 86900; 86901; 86920; 87040; 87086; 93005; 93306; 96372; 96374; 97110; 97116; 97530; 99285-25

== ENCOUNTER 2018-02-13 16:19 | Emergency (ER) | payer MEDICARE, OTHER | END 2018-02-13 20:19 | disposition home or self-care (01) | LOC: FTE 20:19 | DX: Z48.01 Encounter for change or removal of surgical wound dressing (principal); I10 Essential (primary) hypertension; E11.9 Type 2 diabetes mellitus without complications; Z79.4 Long term (current) use of insulin | CPT/HCPCS: 99281 ==